=== PATIENT | male | born 1995 | race Caucasian/White ===

== ENCOUNTER 2021-06-14 16:52 | Inpatient (IN) | payer OTHER ==
[~2021-06-14] VITALS: Ht 172.7 cm; Wt 117.5 kg
[2021-06-14 17:33] LABS: HEMATOCRIT 46.1 % (42.0-52.0); HEMOGLOBIN 15.6 g/dl (13.5-17.5); MEAN CORPUSCULAR HEMOGLOBIN 29.9 pg (27.0-33.0); MEAN CORPUSCULAR HGB CONC 33.8 g/dl (32.0-36.5); MEAN CORPUSCULAR VOLUME 88.3 fl (80.0-96.0); PLATELET COUNT, AUTOMATED 361 10^3/uL (150-450); RED BLOOD COUNT 5.22 10^6/uL (4.30-6.10); WHITE BLOOD COUNT 12.7 10^3/uL (4.0-10.0)
[2021-06-14 18:17] LABS: ALBUMIN 4.1 GM/DL (3.2-5.2); ALT/SGPT 45 U/L (12-78); BILIRUBIN,DIRECT < 0.1 MG/DL (0.0-0.2); BILIRUBIN,TOTAL 0.2 MG/DL (0.2-1.0); BLOOD UREA NITROGEN 12 MG/DL (7-18); CALCIUM LEVEL 8.9 MG/DL (8.5-10.1); CARBON DIOXIDE LEVEL 26 MEQ/L (21-32); CHLORIDE LEVEL 106 MEQ/L (98-107); CREATININE FOR GFR 1.23 MG/DL (0.70-1.30); GLOMERULAR FILTRATION RATE > 60.0 (>60); GLUCOSE, FASTING 84 MG/DL (70-100); POTASSIUM SERUM 4.1 MEQ/L (3.5-5.1); SALICYLATE LEVEL < 1.7 MG/DL (5.0-30.0); SODIUM LEVEL 140 MEQ/L (136-145); TOTAL PROTEIN 7.6 GM/DL (6.4-8.2)
[2021-06-14 18:18] LABS: ACETAMINOPHEN LEVEL < 2.0 UG/ML (10.0-30.0); ETHYL ALCOHOL (ETHANOL) < 0.003 % (0.000-0.010)
[2021-06-14 19:57] LABS: AMPHETAMINES LEVEL URINE NEGATIVE (NEGATIVE); BARBITURATES URINE NEGATIVE (NEGATIVE); BENZODIAZEPINES URINE NEGATIVE (NEGATIVE); CANNABINOIDS URINE NEGATIVE (NEGATIVE); COCAINE METABOLITE URINE NEGATIVE (NEGATIVE); METHADONE URINE NEGATIVE (NEGATIVE); OPIATES URINE NEGATIVE (NEGATIVE); PHENCYCLIDINE URINE NEGATIVE (NEGATIVE)
[2021-06-14] MEDS ORDERED: PRAZ1CAP PO (20:37)
[2021-06-14] MEDS ORDERED: LISI10TA22 PO (20:37)
[2021-06-14] MEDS ORDERED: WELLTAB38 PO (20:37)
[2021-06-14] MEDS ORDERED: HYDR-3363 PO (20:37)
[2021-06-14] MEDS ORDERED: SERT50TA29 PO (20:37)
[2021-06-14] MEDS ORDERED: SERT25TA21 PO (20:37)
[2021-06-14] MEDS ORDERED: HOME MED LIST COMPLETE! XX SCH (20:40)
[2021-06-14] MEDS ORDERED: PRAZOSIN 1 MG CAP PO SCH (21:00)
[2021-06-14] MEDS ORDERED: MAALOX 30 ML SUSP *UDC PO PRN (22:05)
[2021-06-14] MEDS ORDERED: ACETAMINOPHEN TAB 650MG DOSE (2X325MG) PO PRN (22:05)
[2021-06-14] MEDS ORDERED: traZODone 50 MG TAB PO PRN (22:05)
[2021-06-14] MEDS ORDERED: MOM 30ML SUSPENSION UDC PO PRN (22:05)
[2021-06-15 00:29] VITALS: BP 137/91
[2021-06-15 01:40] VITALS: BP 108/63
[2021-06-15] MEDS: hydrOXYzine 50 MG TAB PO PRN ×2 (01:46→20:19)
[2021-06-15 06:36] VITALS: BP 126/60
[2021-06-15] MEDS ORDERED: SERTRALINE HCL 25 MG TABLET PO SCH (09:00)
[2021-06-15] MEDS ORDERED: SERTRALINE HCL 50 MG TAB PO SCH (09:00)
[2021-06-15] MEDS: buPROPion **XL** TABLET 150MG (WELLBUTRIN XL) PO SCH (09:44)
[2021-06-15] MEDS: NICOTINE 21MG/24HR 1 EA TRANSDERMAL TD SCH (11:52)
[2021-06-15 17:45] VITALS: BP 140/98
[2021-06-15 20:19] VITALS: BP 140/98
[2021-06-15] MEDS ORDERED: PRAZOSIN 1 MG CAP PO SCH (21:00)
[2021-06-16 06:34] VITALS: BP 115/59
[2021-06-16] MEDS: buPROPion **XL** TABLET 150MG (WELLBUTRIN XL) PO SCH (08:05)
[2021-06-16] MEDS: NICOTINE 21MG/24HR 1 EA TRANSDERMAL TD SCH (08:05)
[2021-06-16] MEDS ORDERED: SERTRALINE 100 MG TAB PO SCH (09:00)
[2021-06-16] MEDS ORDERED: PRAZ2CAP PO (11:00)
[2021-06-16] MEDS ORDERED: ZOLO100T PO (11:00)
[2021-06-16] MEDS ORDERED: NICO21PAT TD (11:00)
[2021-06-16] MEDS ORDERED: WELLTAB38 PO (11:00)
== END 2021-06-16 12:25 | disposition home or self-care (01) | DRG 881 ==
LOC: M ED 16:52 → M ED INP 16:53 → M PSY 06-15 00:15
PROVIDERS: ADMIT Student in an Organized Health Care Education/Training Program; ATTEND Student in an Organized Health Care Education/Training Program
DX: F34.1 Dysthymic disorder (principal); R45.851 Suicidal ideations; F43.10 Post-traumatic stress disorder, unspecified; I10 Essential (primary) hypertension; F17.220 Nicotine dependence, chewing tobacco, uncomplicated; Z79.899 Other long term (current) drug therapy; Z88.1 Allergy status to other antibiotic agents; Z91.52 Personal history of nonsuicidal self-harm

== ENCOUNTER → 2021-08-02 | Outpatient (REF) ==
[~2021-08-02] MED LIST: HYDR-3363 PO; LISI10TA22 PO; NICO21PAT TD; PRAZ1CAP PO; PRAZ2CAP PO; SERT25TA21 PO; SERT50TA29 PO; WELLTAB38 PO; ZOLO100T PO
== END ==
LOC: M PLAIMG 09:16
PROVIDERS: ATTEND Internal Medicine
DX: R06.02 Shortness of breath (principal)